=== PATIENT | male | born 1995 | race Caucasian/White ===

== ENCOUNTER 2023-08-17 14:31 | Emergency (ER) | payer BC, SELFPAY ==
[2023-08-17 14:38] VITALS: BP 162/95; PULSE 100; RESP 20; TEMP 36.7; O2SAT 97; BMI 48.8
--- NOTE | 2023-08-17 14:49 | PC.NURSE ---
Complains of pain to left middle of back. Patient reports having recent URI and has been coughing frequently. Yesterday when coughing patient felt a pop to left back area and has had pain since
--- NOTE | 2023-08-17 14:50 | ED_ITS ---
Documented by User: LISA Ann 08/17/23 16:01 HPI - URI/Sore Throat General Chief Complaint: Upper Respiratory Infection Stated Complaint: COUGH/ SIDE PAIN Time Seen by Provider: 08/17/23 14:38 Source: patient Limitations: no limitations History of Present Illness HPI Narrative: patient is a 27-year-old male who presents to the emergency department for the evaluation of left posterior rib pain after coughing vigorously yesterday. He states he was diagnosed with bronchitis two weeks ago at [facility] emergency department. He states he has continued to have some coughing and yesterday coughed vigorously while laying on his side. He states he felt a pop in the left posterior rib cage. He has had significant pain with movement since that time. He denies any significant fevers, sputum production. He has not had any hemoptysis. He denies falling or directly injuring the left chest wall. Related Data Previous Rx's Medication Instructions Recorded lwpezwawgpwcrcv-kzvdpkxqzvzgbsp-JQ 10 ml PO Q6H PRN cold symptoms 08/17/23 2 mg-30 mg-10 mg/5 mL oral syrup #200 mL (Bromfed DM) ibuprofen 100 mg/5 mL oral 800 mg (40 mL) PO TID PRN pain 08/17/23 suspension #473 mL Allergies Allergy/AdvReac Type Severity Reaction Status Date / Time acetaminophen [From Tylenol] AdvReac Mild Verified 08/17/23 14:43 Review of Systems ROS Constitutional Denies: fever or chills Ears, nose, mouth, and throat Reports: nasal congestion Respiratory Reports: cough; Denies: shortness of breath Gastrointestinal Denies: nausea or vomiting Musculoskeletal Reports: back pain; Denies: neck pain Integumentary/Breast Denies: rash Hematologic/Lymphatic Denies: easy bruising PFSH PFSH Social History Smoking status: Former smoker Exam Narrative Exam Narrative: Gen.: Awake, alert, in no distress Head: Normocephalic, atraumatic ENT: Moist mucous membranes Respiratory: No respiratory distress, lungs clear bilaterally; tenderness of the left posterior chest wall. No crepitance or ecchymosis noted. No flail chest appreciated on palpation. No midline posterior spinal tenderness of the thoracic spine Cardio: Regular rate and rhythm Gastrointestinal: Abdomen is soft, nondistended and nontender to palpation Extremities: Moves extremities equally Psych: Normal mood and affect Neuro: No focal neuro deficit Skin: Warm, dry, intact Constitutional Vital Signs, click to edit/add: Last Vital Signs Temp 98.1 F 08/17/23 14:38 Pulse 100 H 08/17/23 14:38 Resp 20 08/17/23 14:38 BP 162/95 H 08/17/23 14:38 Pulse Ox 97 08/17/23 14:38 O2 Del Method Room Air 08/17/23 14:38 Course Vital Signs Vital signs: Vital Signs Temperature 98.1 F 08/17/23 14:38 Pulse Rate 100 H 08/17/23 14:38 Respiratory Rate 20 08/17/23 14:38 Blood Pressure 162/95 H 08/17/23 14:38 Pulse Oximetry 97 08/17/23 14:38 Oxygen Delivery Method Room Air 08/17/23 14:38 Temperature 98.1 F 08/17/23 14:38 Pulse Rate 100 H 08/17/23 14:38 Respiratory Rate 20 08/17/23 14:38 Blood Pressure 162/95 H 08/17/23 14:38 Pulse Oximetry 97 08/17/23 14:38 Oxygen Delivery Method Room Air 08/17/23 14:38 MDM - URI/Sore Throat MDM Narrative Medical decision making narrative: x-rays of the chest and ribs with no evidence of broken rib or pneumonia. Patient with stable vitals. He is discharged home with Bromfed-DM, anti- inflammatories. Follow-up with PCP and return to the Emergency Room if symptoms change or worsen. Medical Records Attestation: I reviewed the patient's medical records. Imaging Data Chest x-ray: Attestation: I have reviewed the pertinent imaging results. Radiologist's impression: Procedure: XR ribs LT min 3V w CXR1V EXAMINATION: XR ribs LT min 3V w CXR1V HISTORY: Cough and left chest pain COMPARISON: None. TECHNIQUE: PA and AP chest x-rays and 3 views of the left ribs FINDINGS: The lung parenchyma is free of consolidation or infiltrate. No pneumothorax or pleural effusion. The cardiac, mediastinal and hilar contours are normal. The visualized osseous structures exhibit no gross abnormality. IMPRESSION: No visualized abnormality Electronically authenticated by: SOY STEPHEN Date: 08/17/2023 15:42 Discharge Plan Discharge Chief Complaint: Upper Respiratory Infection Clinical Impression: Chest wall pain, Cough Patient Disposition: Home, Self-Care Time of Disposition Decision: 15:54 Condition: Good Mode of Transportation: Private Vehicle Prescriptions / Home Meds: New tanjfcglqpdmnse-dzrzmefge-XD [Bromfed DM] 2-30-10 mg/5 mL syrup 10 ml PO Q6H PRN (Reason: cold symptoms) Qty: 200 0RF ibuprofen 100 mg/5 mL suspension 800 mg PO TID PRN (Reason: pain) Qty: 473 0RF Instructions: Acute Cough (ED), Chest Wall Pain (ED) Stand Alone Forms: Portal Instructions Referrals: Physician,Non-Staff, MD [Primary Care Provider] - 1 week Discharge Date/Time: 08/17/23 16:08 Documented by User: John Nieto MD 08/17/23 20:25 HPI - URI/Sore Throat General Chief Complaint: Upper Respiratory Infection Stated Complaint: COUGH/ SIDE PAIN Time Seen by Provider: 08/17/23 14:38 Related Data Previous Rx's Medication Instructions Recorded dudpcgkfbnjlvab-tpupkayivwdrupk-CK 10 ml PO Q6H PRN cold symptoms 08/17/23 2 mg-30 mg-10 mg/5 mL oral syrup #200 mL (Bromfed DM) ibuprofen 100 mg/5 mL oral 800 mg (40 mL) PO TID PRN pain 08/17/23 suspension #473 mL Allergies Allergy/AdvReac Type Severity Reaction Status Date / Time acetaminophen [From Tylenol] AdvReac Mild Verified 08/17/23 14:43 PFSH PFSH Social History Smoking status: Former smoker Exam Constitutional Vital Signs, click to edit/add: Last Vital Signs Temp 98.1 F 08/17/23 14:38 Pulse 100 H 08/17/23 14:38 Resp 20 08/17/23 14:38 BP 162/95 H 08/17/23 14:38 Pulse Ox 97 08/17/23 14:38 O2 Del Method Room Air 08/17/23 14:38 Course Vital Signs Vital signs: Vital Signs Temperature 98.1 F 08/17/23 14:38 Pulse Rate 100 H 08/17/23 14:38 Respiratory Rate 20 08/17/23 14:38 Blood Pressure 162/95 H 08/17/23 14:38 Pulse Oximetry 97 08/17/23 14:38 Oxygen Delivery Method Room Air 08/17/23 14:38 Temperature 98.1 F 08/17/23 14:38 Pulse Rate 100 H 08/17/23 14:38 Respiratory Rate 20 08/17/23 14:38 Blood Pressure 162/95 H 08/17/23 14:38 Pulse Oximetry 97 08/17/23 14:38 Oxygen Delivery Method Room Air 08/17/23 14:38 MDM - URI/Sore Throat MDM Narrative Medical decision making narrative: x-rays of the chest and ribs with no evidence of broken rib or pneumonia. Patient with stable vitals. He is discharged home with Bromfed-DM, anti- inflammatories. Follow-up with PCP and return to the Emergency Room if symptoms change or worsen. I, Dr Nieto, have reviewed the above progress note and course of action in the ER; agree with the above. I have gone over history and physical, and discussed disposition and treatment plan with the patient. Discharge Plan Discharge Chief Complaint: Upper Respiratory Infection Clinical Impression: Chest wall pain, Cough Patient Disposition: Home, Self-Care Time of Disposition Decision: 15:54 Condition: Good Mode of Transportation: Private Vehicle Prescriptions / Home Meds: New nhtsjjuquptmwii-oployzufj-JY [Bromfed DM] 2-30-10 mg/5 mL syrup 10 ml PO Q6H PRN (Reason: cold symptoms) Qty: 200 0RF ibuprofen 100 mg/5 mL suspension 800 mg PO TID PRN (Reason: pain) Qty: 473 0RF Instructions: Acute Cough (ED), Chest Wall Pain (ED) Stand Alone Forms: Portal Instructions Referrals: Physician,Non-Staff, MD [Primary Care Provider] - 1 week Discharge Date/Time: 08/17/23 16:08
--- NOTE | 2023-08-17 14:50 | XR_ITS ---
[facility] [id number] Patient Name: NISHANT MONCADA MRN: [id number] date: 1995 Sex: M Assigned Patient Location: ER Current Patient Location: ER Accession/Order Number: [id number] Exam Date: 08/17/2023 15:20 Report Date: 08/17/2023 15:42 At the request of: GISELLE SAENZ Procedure: XR ribs LT min 3V w CXR1V EXAMINATION: XR ribs LT min 3V w CXR1V HISTORY: Cough and left chest pain COMPARISON: None. TECHNIQUE: PA and AP chest x-rays and 3 views of the left ribs FINDINGS: The lung parenchyma is free of consolidation or infiltrate. No pneumothorax or pleural effusion. The cardiac, mediastinal and hilar contours are normal. The visualized osseous structures exhibit no gross abnormality. XR/XR ribs LT min 3V w CXR1V IMPRESSION: No visualized abnormality Electronically authenticated by: SOY STEPHEN Date: 08/17/2023 15:42
[2023-08-17] MEDS: KETOROLAC TROMETHAMINE 60 MG/2 ML VIAL IM (15:18)
[2023-08-17] MEDS: METHYLPREDNISOLONE SOD SUCC PF 125 MG/2 ML VIAL IM (15:18)
== END 2023-08-17 16:08 | disposition home or self-care (01) ==
PROVIDERS: Emergency Provider Emergency Medicine
DX: R07.89 Other chest pain (principal); R05.9 Cough, unspecified; Z87.891 Personal history of nicotine dependence
CPT/HCPCS: 71101; 96372; 99284; J2930